=== PATIENT | male | born 1965 | race Caucasian/White ===

== ENCOUNTER 2021-08-24 02:31 | Emergency (ER) | payer SELFPAY ==
--- NOTE | 2021-08-24 02:37 | ECG_ITS ---
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 Measurements Intervals [place] Rate: 79 P: 21 ME: 148 QRS: 23 QRSD: 94 T: 18 QT: 408 QTc: 468 Interpretive Statements SINUS RHYTHM WITH OCCASIONAL ECTOPIC PREMATURE COMPLEXES No previous ECG available for comparison Electronically Signed On 08-25-2021 7:36:32 DATE PULLER by Iman Gardner M.D. [id number]
--- NOTE | 2021-08-24 02:37 | XRR_ITS ---
PROCEDURE INFORMATION: Exam: XR Chest Exam date and time: 08/24/2021 2:37 AM Age: 56 years old Clinical indication: Chest wall pain; Additional info: Cp TECHNIQUE: Imaging protocol: XR of the chest. Views: 1 view. COMPARISON: No relevant prior studies available. FINDINGS: Lungs: Unremarkable. No consolidation. Pleural spaces: Unremarkable. No pleural effusion. No pneumothorax. Heart/Mediastinum: Unremarkable. No cardiomegaly. Bones/joints: Unremarkable. XR/XR chest 1V portable [id number] IMPRESSION: No acute findings.
[2021-08-24 02:39] VITALS: BP 123/71; PULSE 83; RESP 18; TEMP 37.1; O2SAT 98; BMI 30.4
--- NOTE | 2021-08-24 02:39 | W.ED.ALLEREA ---
HPI - Allergic Reaction General: Chief complaint: Allergic Reaction Stated complaint: WEAKNESS Time Seen by Provider: 08/24/21 02:32 Source: patient and EMS Mode of arrival: EMS Limitations: no limitations History of Present Illness: HPI narrative: States that he went to bed at 11 woke up at around 130 with burning and itching sensation in his chest and his extremities and was lethargic and weak. EMS states they first arrived his blood pressure was in the 80s I gave him a 250 bolus now 123/71. States he still has a severe itchiness he does have a full body rash is urticarial in nature. He denies any recent changes in medicines or having allergic reaction in the past. He denies any headache he is able answer all my questions here appropriately. Denies any worsening improving factors. Associated symptoms: Deny abdominal pain, nausea or vomiting Review of Systems Const: Denies: fever(s), chills, body aches or change in appetite Eyes: Denies: blurry vision or eye discomfort ENMT: Denies: throat pain or dental pain Card: Reports: chest pain Resp: Denies: dyspnea GI: Denies: abdominal pain, nausea, vomiting or diarrhea : Denies: dysuria Musc: Denies: neck pain or back pain Skin/Breast: Reports: rash, pruritus and erythema Neuro: Denies: headache(s) Psych: Denies: depression Yuri/Lymph: Denies: easy bruising All/Imm: Denies: urticaria Physical Exam Const: COMMON NORMALS: no acute distress, patient oriented x3 and healthy appearing HENMT: COMMON NORMALS: normocephalic and atraumatic HEAD & SCALP: normocephalic and atraumatic OTHER: No tongue or throat swelling with no dyspnea Eye: COMMON NORMALS: Equal, round and reactive pupils present and EOMs intact bilaterally PUPIL: Yes Equal, round and reactive pupils present Neck/C-Spine: COMMON NORMALS: full ROM and supple Chest: COMMONS NORMALS: normal inspection of the chest and normal palpation of entire chest wall Resp: COMMON NORMALS: normal respiratory effort, No retractions, No use of accessory muscles and clear to auscultation bilaterally AUSCULTATION: clear to auscultation bilaterally Cardio: COMMON NORMALS: regular rate, regular rhythm and No murmurs present (Cardio) RATE: regular rate RHYTHM: regular rhythm GI: COMMON NORMALS: Normal to inspection, nondistended, normoactive bowel sounds present, Soft to palpation, non-tender and no masses PALPATION: Yes Soft to palpation Extremity: COMMON NORMALS: normal to inspection and full ROM Neuro: COMMON NORMALS: patient oriented x3, moves all extremities and no focal motor deficits Psych: COMMON NORMALS: mental status grossly normal, Normal thought process present and cooperative THOUGHT PROCESS: Normal thought process present Skin: COMMON NORMALS: no wounds RASHES: rashes noted (Urticarial rash to chest trunk arms and legs) Course Vital Signs: Vital signs: Vital Signs Temperature 97.8 F 08/24/21 03:15 Pulse Rate 91 08/24/21 05:07 Respiratory Rate 26 H 08/24/21 05:07 Blood Pressure 118/66 08/24/21 05:07 Pulse Oximetry 97 08/24/21 05:07 MDM - Allergic Reaction MDM Narrative: Medical decision making narrative: Patient presents here with an allergic reaction is likely causing the burning sensation in his chest with no rash as well both troponins here are normal his rash is improved greatly. 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 He is return if worsening. Lab Data: Labs: Lab Results 08/24/21 08/24/21 08/24/21 02:50 02:50 02:50 WBC 8.9 10^3/uL 10^3/ uL (4.0-10.0) RBC 5.76 10^6/uL H 10 ^6/uL (4.1-5.3) Hgb 17.2 g/dL H g/dL (11.7-16.6) Hct 50.2 % % (42.0-52.0) MCV 87.2 fl fl (80-94) MCH 29.9 pg pg (28.0-34.0) MCHC 34.3 g/dL g/dL (30.0-36.0) RDW 12.6 % % (12.1-15.1) Plt Count 104 10^3/cmm L 10 ^3/cmm (130-400) MPV 11.4 fL H fL (7.4-10.4) Neut % (Auto) 81.4 % % Lymph % (Auto) 15.4 % % [place] % (Auto) 2.5 % % Eos % (Auto) 0.4 % % Baso % (Auto) 0.1 % % Neut # (Auto) 7.27 10^3/uL 10^3 /uL (1.8-7.7) Lymph # (Auto) 1.4 10^3/uL 10^3/ uL (0.8-4.8) [place] # (Auto) 0.2 10^3/uL 10^3/ uL (0.2-0.9) Eos # (Auto) 0.0 10^3/uL 10^3/ uL (0.0-0.8) Baso # (Auto) 0.0 10^3/uL 10^3/ uL (0.0-0.1) Nucleated RBC % (a uto) 0 % % Nucleated RBCs # 0.0 /100WBC /100W BC Sodium Cancelled Potassium Cancelled Chloride Cancelled Carbon Dioxide Cancelled Anion Gap Cancelled BUN Cancelled Creatinine Cancelled GFR Calculation Cancelled Glucose Cancelled POC Glucose Calculated Osmolal ity Cancelled Calcium Cancelled Total Bilirubin Cancelled AST Cancelled ALT Cancelled Alkaline Phosphata se Cancelled Troponin T Gen 5 n g/L Troponin T Baselin e Cancelled Troponin T 120 Min [place] Troponin T Total Protein Cancelled Albumin Cancelled Globulin Cancelled 08/24/21 08/24/21 08/24/21 03:30 03:30 04:01 WBC RBC Hgb Hct MCV MCH MCHC RDW Plt Count MPV Neut % (Auto) Lymph % (Auto) [place] % (Auto) Eos % (Auto) Baso % (Auto) Neut # (Auto) Lymph # (Auto) [place] # (Auto) Eos # (Auto) Baso # (Auto) Nucleated RBC % (a uto) Nucleated RBCs # Sodium 138 mmol/L mmol/L (136-145) Potassium 4.2 mmol/L mmol/L (3.5-5.1) Chloride 103 mmol/L mmol/L (98-107) Carbon Dioxide 20 mmol/L L mmol/ L (22-29) Anion Gap 19.2 H (5-19) BUN 15 mg/dL mg/dL (6-20) Creatinine 0.6 mg/dL L mg/dL (0.7-1.2) GFR Calculation 139.4 mL/min H mL /min (90-130) Glucose 224 mg/dL H mg/dL (65-115) POC Glucose 196 mg/dL H mg/dL (70-110) Calculated Osmolal ity 294 mOsm/kg mOsm/ kg (285-295) Calcium 8.2 mg/dL L mg/dL (8.5-10.5) Total Bilirubin 1.1 mg/dL mg/dL (0.15-1.2) AST 36 U/L U/L (0-40) ALT 17 U/L U/L (0-41) Alkaline Phosphata se 70 IU/L IU/L (40-130) Troponin T Gen 5 n g/L 11 ng/L ng/L (0-15) Troponin T Baselin e Troponin T 120 Min [place] Troponin T Total Protein 6.2 g/dL L g/dL (6.6-8.7) Albumin 3.5 g/dL g/dL (3.5-5.2) Globulin 2.7 g/dL g/dL (1.3-4.6) 08/24/21 05:00 WBC RBC Hgb Hct MCV MCH MCHC RDW Plt Count MPV Neut % (Auto) Lymph % (Auto) Falls % (Auto) Eos % (Auto) Baso % (Auto) Neut # (Auto) Lymph # (Auto) Falls # (Auto) Eos # (Auto) Baso # (Auto) Nucleated RBC % (a uto) Nucleated RBCs # Sodium Potassium Chloride Carbon Dioxide Anion Gap BUN Creatinine GFR Calculation Glucose POC Glucose Calculated Osmolal ity Calcium Total Bilirubin AST ALT Alkaline Phosphata se Troponin T Gen 5 n g/L Troponin T Baselin e Troponin T 120 Min [place] 13.14 ng/L ng/L (0-15) [place] Troponin T 2.14 ABS# ABS# (0-10) Total Protein Albumin Globulin EKG Data^: EKG 1: Attestation: I personally reviewed and interpreted this EKG as follows: EKG interpretation date: 08/24/21 EKG interpretation time: 02:40 Interpretation: nsr hr [address] or t wave abnormalities qrs 94 qtc 442 Discharge Plan Discharge Prescriptions: New EpiPen 2-Darshan 0.3 mg/0.3 mL auto-injector 0.3 mg IM Q20M PRN (Reason: anaphylaxis) Qty: 2 RF: 0 prednisone 50 mg tablet 50 mg PO DAILY Qty: 5 RF: 0 No Action nadolol 40 mg Tablet 40 mg PO DAILY RF: 0 losartan 100 mg Tablet 100 mg PO DAILY RF: 0 glipizide 5 mg Tablet 5 mg PO BID RF: 0 Jardiance 10 mg Tablet 10 mg PO DAILY RF: 0 Discharge Orders: Discharge ED (Routine); Ordered 08/24/21 Ordered By: Citlalli Berry Coding Level of Care Code ED Comptometrist for Chg Fwd Exam Comprehensive
[2021-08-24] MEDS: diphenhydrAMINE 50 mg/mL SDV 1mL IVP (02:49)
[2021-08-24] MEDS: famotidine 20 mg/2 mL INJ 40 MG IVP (02:51)
[2021-08-24] MEDS: sodium chloride 0.9% 1,000 ML 999 ML IV (03:01)
[2021-08-24] MEDS: ondansetron 2 mg/ML SDV 2 mL 4 MG IVP (03:07)
[2021-08-24 03:14] LABS: Basophils % 0.1 %; Eosinophils % 0.4 %; Hematocrit 50.2 % (42.0-52.0); Hemoglobin 17.2 g/dL (11.7-16.6); Lymphocytes # 1.4 10^3/uL (0.8-4.8); Lymphocytes % 15.4 %; Mean Corpuscular HGB Conc 34.3 g/dL (30.0-36.0); Mean Corpuscular Hemoglobin 29.9 pg (28.0-34.0); Mean Corpuscular Volume 87.2 fl (80-94); Mean Platelet Volume 11.4 fL (7.4-10.4); Monocytes # 0.2 10^3/uL (0.2-0.9); Monocytes % 2.5 %; Neutrophils # 7.27 10^3/uL (1.8-7.7); Neutrophils % 81.4 %; Nucleated Red Blood Cells % 0 %; Platelet Count 104 10^3/cmm (130-400); Red Blood Count 5.76 10^6/uL (4.1-5.3); Red Cell Distribution Width 12.6 % (12.1-15.1); White Blood Count 8.9 10^3/uL (4.0-10.0)
[2021-08-24 03:15] VITALS: BP 108/75; PULSE 84; RESP 25; TEMP 36.6; O2SAT 98
[2021-08-24] MEDS: EPINEPHrine 1 mg/mL INJ 0.5 MG IM (03:31)
[2021-08-24 03:34] VITALS: BP 119/70; PULSE 84; RESP 30; O2SAT 99
[2021-08-24] MEDS: diphenhydrAMINE 50 mg/mL SDV 1mL 25 MG IVP (04:02)
[2021-08-24 04:05] LABS: Troponin T (5th) Once 11 ng/L (0-15)
[2021-08-24 04:08] LABS: Alanine Aminotransferase 17 U/L (0-41); Albumin Level 3.5 g/dL (3.5-5.2); Alkaline Phosphatase 70 IU/L (40-130); Aspartate Amino Transferase 36 U/L (0-40); Blood Urea Nitrogen 15 mg/dL (6-20); Calcium 8.2 mg/dL (8.5-10.5); Carbon Dioxide 20 mmol/L (22-29); Chloride 103 mmol/L (98-107); Globulin 2.7 g/dL (1.3-4.6); Glomerular Filtration Rate 139.4 mL/min (90-130); Glucose 224 mg/dL (65-115); Osmolality Calculated 294 mOsm/kg (285-295); Sodium 138 mmol/L (136-145); Total Bilirubin 1.1 mg/dL (0.15-1.2); Total Protein 6.2 g/dL (6.6-8.7)
[2021-08-24 04:09] VITALS: BP 142/73; PULSE 80; RESP 31; O2SAT 99
[2021-08-24 04:09] LABS: Glucose Point of Care 196 mg/dL (70-110)
[2021-08-24 04:09] LABS: Anion Gap 19.2 (5-19); Creatinine Clr Calc Pharmacy 150.3584; Potassium 4.2 mmol/L (3.5-5.1)
--- NOTE | 2021-08-24 04:37 | ECG_ITS ---
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 Measurements Intervals [place] Rate: 82 P: 39 CA: 156 QRS: 33 QRSD: 97 T: 38 QT: 393 QTc: 461 Interpretive Statements SINUS RHYTHM SEPTAL MYOCARDIAL INFARCTION , OF INDETERMINATE AGE [40+ ms Q WAVE IN V1/V2] Compared to ECG 08/24/2021 02:40:46 Myocardial infarct finding now present Electronically Signed On 08-25-2021 7:42:47 DISK GRINDER by Iman Gardner M.D. [id number]
[2021-08-24 05:07] VITALS: BP 118/66; PULSE 91; RESP 26; O2SAT 97
[2021-08-24 05:40] LABS: Troponin 5 2HR 13.14 ng/L (0-15)
[2021-08-24 05:50] LABS: Troponin 5 2HR Delta 2.14 ABS# (0-10)
== END 2021-08-24 06:44 ==
PROVIDERS: Emergency Provider Emergency Medicine
DX: T78.40XA Allergy, unspecified, initial encounter (principal); X58.XXXA Exposure to other specified factors, initial encounter; R07.9 Chest pain, unspecified; I95.9 Hypotension, unspecified; R21 Rash and other nonspecific skin eruption
CPT/HCPCS: 36416; 71045; 80053; 82962; 84484; 85025; 93005; 96361; 96372; 96374; 96375; 96376; 99284; J0171; J1200; J2405; J2930; J3490; J7030

== ENCOUNTER 2021-08-25 14:53 | Emergency (ER) | payer SELFPAY ==
[2021-08-25 15:00] VITALS: BP 138/89; PULSE 113; RESP 16; TEMP 37.3; O2SAT 95
[2021-08-25 16:46] LABS: Basophils % 0.3 %; Hematocrit 47.1 % (42.0-52.0); Hemoglobin 15.7 g/dL (11.7-16.6); Lymphocytes # 0.3 10^3/uL (0.8-4.8); Lymphocytes % 9.6 %; Mean Corpuscular HGB Conc 33.3 g/dL (30.0-36.0); Mean Corpuscular Hemoglobin 29.5 pg (28.0-34.0); Mean Corpuscular Volume 88.4 fl (80-94); Mean Platelet Volume 9.9 fL (7.4-10.4); Monocytes # 0.2 10^3/uL (0.2-0.9); Monocytes % 5.6 %; Neutrophils % 83.2 %; Nucleated Red Blood Cells % 0 %; Platelet Count 76 10^3/cmm (130-400); Red Blood Count 5.33 10^6/uL (4.1-5.3); Red Cell Distribution Width 12.6 % (12.1-15.1)
[2021-08-25 17:03] LABS: Alanine Aminotransferase 30 U/L (0-41); Albumin Level 3.8 g/dL (3.5-5.2); Alkaline Phosphatase 53 IU/L (40-130); Anion Gap 20.1 (5-19); Aspartate Amino Transferase 54 U/L (0-40); Blood Urea Nitrogen 27 mg/dL (6-20); Calcium 8.1 mg/dL (8.5-10.5); Carbon Dioxide 23 mmol/L (22-29); Chloride 103 mmol/L (98-107); Glucose 213 mg/dL (65-115); Lipase 31 U/L (13-60); Osmolality Calculated 305 mOsm/kg (285-295); Potassium 4.1 mmol/L (3.5-5.1); Sodium 142 mmol/L (136-145); Total Bilirubin 1.4 mg/dL (0.15-1.2); Total Protein 6.8 g/dL (6.6-8.7)
--- NOTE | 2021-08-25 17:59 | W.ED.NAVMDI ---
HPI - Nausea/Vomiting/Diarrhea General: Chief complaint: Nausea/Vomiting/Diarrhea Stated complaint: vomiting; unable to keep anything down Time Seen by Provider: 08/25/21 17:45 History of Present Illness: HPI Narrative: 56-year-old male presents emergency room with nausea and vomiting. Has had last couple of days few days ago allergic reaction he was started on prednisone that seems to have aggravated it. He stopped taking it he has noticed that even when he eats or drinks water he will throw it up however he did been drinking a large amounts and it makes it worse. His blood sugars have been fairly well controlled. He is not on any Metformin. No other medication changes. He has had problems with reflux in the past but only takes Protonix as on an as-needed basis. MD elicited complaint: nausea and vomiting Onset (ago): day(s) Description of vomiting: food contents and bilious Associated nausea: Yes Associated abdominal pain: No Quality: aching Exacerbating factors: none Relieving factors: none Associated symtoms: Reports bloating and nausea; Denies anxiety, change in vision, chest pain, cough, diaphoresis, decreased urine output, dizziness, dysuria, epistaxis, fatigue, fecal incontinence, fevers/chills, headache(s), anorexia, malaise, myalgias, numbness, palpitations, rash, short of breath, syncope, tenesmus, tinnitus or weakness Review of Systems Const: Denies: fatigue, malaise or diaphoresis Eyes: Denies: change in vision ENMT: Denies: tinnitus or epistaxis Card: Denies: chest pain, palpitations or syncope Resp: Denies: dyspnea, productive cough or non-productive cough GI: Reports: nausea and bloating; Denies: fecal incontinence : Denies: dysuria Skin/Breast: Denies: rash or pruritus Neuro: Denies: headache(s) or dizziness Psych: Denies: anxiety PFSH ED PFSH: Medical History (Updated 08/29/21 @ 08:30 by Tyrell Land DO) Delayed gastric emptying Diabetes GERD (gastroesophageal reflux disease) Physical Exam Const: COMMON NORMALS: no acute distress GENERAL APPEARANCE: cooperative and comfortable ORIENTATION/CONSCIOUSNESS: Yes awake, Yes oriented to person, Yes oriented to place and Yes oriented to time HENMT: COMMON NORMALS: normocephalic, atraumatic and hearing grossly normal bilaterally HEAD & SCALP: normocephalic and atraumatic Resp: COMMON NORMALS: normal respiratory effort, No retractions, No use of accessory muscles and clear to auscultation bilaterally AUSCULTATION: clear to auscultation bilaterally Cardio: COMMON NORMALS: regular rate, regular rhythm and No murmurs present (Cardio) RATE: regular rate RHYTHM: regular rhythm GI: COMMON NORMALS: Soft to palpation and No hepatosplenomegaly present AUSCULTATION: Yes normoactive bowel sounds PALPATION: Yes Soft to palpation, No Tenderness to palpation present (GI), No Guarding due to palpation present (GI) and Yes No hepatosplenomegaly present Extremity: COMMON NORMALS: normal to inspection, capillary refill normal, no clubbing, cyanosis or edema, no calf tenderness and no pedal edema Neuro: SENSORIUM/ORIENTATION: Yes oriented to person, Yes oriented to place and Yes oriented to time Skin: COMMON NORMALS: no rashes or lesions noted GENERAL SKIN EXAM: no rashes or lesions noted Course Vital Signs: Vital signs: Vital Signs Temperature 99.1 F 08/25/21 15:00 Pulse Rate 98 08/25/21 19:06 Respiratory Rate 14 08/25/21 19:06 Blood Pressure 138/89 08/25/21 15:00 Pulse Oximetry 96 08/25/21 19:06 MDM - Nausea/Vomiting/Diarrhea MDM Narrative: Medical decision making narrative: Patient is actually doing fairly well at this time. His symptoms began shortly after taking prednisone. Recommend that he stop the prednisone and will give him some Zofran to use as needed also start him on pantoprazole 40 mg twice daily. If his symptoms persist recommend that he follow-up his primary care doc and evaluate for possible EGD or gastric emptying study. His symptoms also could be delayed gastric emptying as a result of diabetes was exacerbated by the prednisone. Lab Data: Labs: Lab Results 08/25/21 08/25/21 16:40 16:40 WBC 3.0 10^3/uL L 10^ 3/uL (4.0-10.0) RBC 5.33 10^6/uL H 10 ^6/uL (4.1-5.3) Hgb 15.7 g/dL g/dL (11.7-16.6) Hct 47.1 % % (42.0-52.0) MCV 88.4 fl fl (80-94) MCH 29.5 pg pg (28.0-34.0) MCHC 33.3 g/dL g/dL (30.0-36.0) RDW 12.6 % % (12.1-15.1) Plt Count 76 10^3/cmm L 10^ 3/cmm (130-400) MPV 9.9 fL fL (7.4-10.4) Neut % (Auto) 83.2 % % Lymph % (Auto) 9.6 % % [place] % (Auto) 5.6 % % Eos % (Auto) 1.0 % % Baso % (Auto) 0.3 % % Neut # (Auto) 2.50 10^3/uL 10^3 /uL (1.8-7.7) Lymph # (Auto) 0.3 10^3/uL L 10^ 3/uL (0.8-4.8) [place] # (Auto) 0.2 10^3/uL 10^3/ uL (0.2-0.9) Eos # (Auto) 0.0 10^3/uL 10^3/ uL (0.0-0.8) Baso # (Auto) 0.0 10^3/uL 10^3/ uL (0.0-0.1) Nucleated RBC % (a uto) 0 % % Nucleated RBCs # 0.0 /100WBC /100W BC Sodium 142 mmol/L mmol/L (136-145) Potassium 4.1 mmol/L mmol/L (3.5-5.1) Chloride 103 mmol/L mmol/L (98-107) Carbon Dioxide 23 mmol/L mmol/L (22-29) Anion Gap 20.1 H (5-19) BUN 27 mg/dL H mg/dL (6-20) Creatinine 0.8 mg/dL mg/dL (0.7-1.2) GFR Calculation 100.0 mL/min mL/m in (90-130) Glucose 213 mg/dL H mg/dL (65-115) Calculated Osmolal ity 305 mOsm/kg H mOs m/kg (285-295) Calcium 8.1 mg/dL L mg/dL (8.5-10.5) Total Bilirubin 1.4 mg/dL H mg/dL (0.15-1.2) AST 54 U/L H U/L (0-40) ALT 30 U/L U/L (0-41) Alkaline Phosphata se 53 IU/L IU/L (40-130) Total Protein 6.8 g/dL g/dL (6.6-8.7) Albumin 3.8 g/dL g/dL (3.5-5.2) Globulin 3.0 g/dL g/dL (1.3-4.6) Lipase 31 U/L U/L (13-60) Discharge Plan Discharge Patient Disposition: Home Clinical Impression: Drug-induced nausea and vomiting, Diabetes, GERD (gastroesophageal reflux disease), Delayed gastric emptying Condition: Stable Prescriptions: New pantoprazole 40 mg tablet,delayed release (DR/EC) 40 mg PO BID Qty: 60 RF: 0 Zofran 4 mg tablet 4 mg PO Q6H PRN (Reason: nausea and vomiting) Qty: 20 RF: 0 Discontinued prednisone 50 mg tablet 50 mg PO DAILY Qty: 5 RF: 0 No Action nadolol 40 mg Tablet 40 mg PO DAILY RF: 0 losartan 100 mg Tablet 100 mg PO DAILY RF: 0 glipizide 5 mg Tablet 5 mg PO BID RF: 0 Jardiance 10 mg Tablet 10 mg PO DAILY RF: 0 EpiPen 2-Darshan 0.3 mg/0.3 mL auto-injector 0.3 mg IM Q20M PRN (Reason: anaphylaxis) Qty: 2 RF: 0 Discharge Orders: Discharge ED (Routine); Ordered 08/25/21 Ordered By: Tyrell Land Patient Instructions: Opioid Safety Coding Level of Care Code ED Senior Label Specialist for Leonor Berry
[2021-08-25 19:06] VITALS: PULSE 98; RESP 14; O2SAT 96
== END 2021-08-25 19:07 | disposition home or self-care (01) ==
PROVIDERS: Physician Assistant; Emergency Provider Family Medicine
DX: R11.2 Nausea with vomiting, unspecified (principal); T38.0X5A Adverse effect of glucocorticoids and synthetic analogues, initial encounter; Y92.9 Unspecified place or not applicable; K21.9 Gastro-esophageal reflux disease without esophagitis; K30 Functional dyspepsia
CPT/HCPCS: 36415; 80053; 83690; 85025; 99282